=== PATIENT | male | born 1945 | race Caucasian/White ===

== ENCOUNTER 2019-07-12 07:11 | Outpatient (CLI) | payer MEDICARE, SELFPAY ==
--- NOTE | 2019-07-12 | XRR_ITS ---
PROCEDURE INFORMATION: Exam: XR Chest, 2 Views Exam date and time: 07/12/2019 7:43 AM Age: 73 years old Clinical indication: Cough; Additional info: Adventitious breath sounds, cough TECHNIQUE: Imaging protocol: XR of the chest Views: 2 views. COMPARISON: CR Chest 2 views* [id number] 03/23/2017 12:28 PM FINDINGS: Lungs: Hyperinflation. No CHF or focal consolidation. Right apical scarring. Pleural space: Right apical pleural thickening. No pleural effusion. No pneumothorax. Heart/Mediastinum: Unremarkable. No cardiomegaly. Bones/joints: No acute findings. XR/XR chest 2V* [id number] IMPRESSION: No acute findings.
--- NOTE | 2019-07-12 07:15 | US_ITS ---
WS: [id number] Complete ABDOMINAL ULTRASOUND HISTORY: RUQ PAIN COMPARISON: None available. Liver: 13.6 cm in length. Liver is normal size and echogenicity with no mass or intrahepatic dilatati on. Gallbladder: Several stones within the normally distended gallbladder. No pericholecystic fluid. Gall bladder wall is top normal size. Gallbladder wall thickness: 3.0 cm. Pancreas: Normal size and echogenicity. CBD: 4.0 cm. Right kidney: 10.4 cm x 5.4 cm x 5.3 cm. No mass, cortical thickening or hydronephrosis. Left kidney: 11.6 cm x 5.1 cm x 5.2 cm. No mass, cortical thickening or hydronephrosis. Spleen: Normal size and echogenicity. Abdominal aorta and IVC are within normal limits. No ascites. US/US abdomen complete* [id number] IMPRESSION: 1. Cholelithiasis without evidence for acute cholecystitis. Numerous stones ar e present in the gallbladder. 2. No bile duct dilatation.
== END 2019-07-12 07:12 | disposition home or self-care (01) ==
PROVIDERS: Family Provider Family Medicine; PCP Family Medicine; Visit Provider Nurse Practitioner Family
DX: K80.20 Calculus of gallbladder without cholecystitis without obstruction (principal); R10.811 Right upper quadrant abdominal tenderness; R06.89 Other abnormalities of breathing
CPT/HCPCS: 71046; 76700

== ENCOUNTER → 2020-08-19 14:04 | Outpatient (BNVA) | payer MEDICARE, SELFPAY | PROVIDERS: Family Provider Family Medicine; PCP Family Medicine; Visit Provider Podiatrist Foot & Ankle Surgery | DX: M79.672 Pain in left foot (principal) | CPT/HCPCS: 73630 ==

== ENCOUNTER 2021-04-16 10:07 | Outpatient (CLI) | payer MEDICARE, SELFPAY ==
--- NOTE | 2021-04-16 10:10 | CT_ITS ---
WS: [id number] LDCT LUNG CANCER SCREENING TECHNIQUE: Noncontrast CT of the chest with coronal and sagittal reformatted images. CLINICAL INFORMATION: HX OF TOBACCO USE COMPARISON: None. DLP: 62.11 mGy.cm DIvol: 1.[address] scans at [facility] use at least one of these dose optimization techniques: automat ed exposure control; mA and/or kV adjustment per patient size (includes targeted exams where dose is matched to clinical indication); or iterative reconstruction. FINDINGS: Moderate to advanced chronic emphysematous changes. Fibrosis and calcification in the right lung apex . Aortic calcification. Coronary calcification. Calcified right hilar nodes. 11 mm partially calcifie d fibrotic lesion left upper lobe anteriorly unchanged since 2017. This has a chronic appearance. Adrenal glands are normal. Mild thoracic curve and thoracic kyphosis. Moderate spondylitic changes thoracic spine with disc spac e narrowing in the mid thoracic spine. CT/CT lung screening [id number] IMPRESSION: LUNG-RADS: 2-Benign Appearance or Behavior FOLLOW UP: 12 Month: Continue annual screening with LDCT
== END 2021-04-16 10:08 | disposition home or self-care (01) ==
PROVIDERS: PCP Family Medicine; Visit Provider Family Medicine
DX: Z12.2 Encounter for screening for malignant neoplasm of respiratory organs (principal); Z87.891 Personal history of nicotine dependence
CPT/HCPCS: 71271

== ENCOUNTER → 2023-12-30 14:10 | Outpatient (BNVA) | payer MEDICARE, SELFPAY | PROVIDERS: PCP Family Medicine; Visit Provider Nurse Practitioner Family | DX: Z12.5 Encounter for screening for malignant neoplasm of prostate (principal); I10 Essential (primary) hypertension; E34.9 Endocrine disorder, unspecified; F17.200 Nicotine dependence, unspecified, uncomplicated; J44.9 Chronic obstructive pulmonary disease, unspecified; M54.16 Radiculopathy, lumbar region | CPT/HCPCS: 80053; 80061; 85025 ==

== ENCOUNTER 2024-01-05 14:25 | Outpatient (CLI) | payer MEDICARE, SELFPAY ==
--- NOTE | 2024-01-05 14:30 | CT_ITS ---
WS: [id number] CT chest w con* [id number] HISTORY: pulmonary nodule TECHNIQUE: Axial imaging performed through the thorax. Coronal and sagittal reformats are submitted. [facility] at [facility] one of these dose optimization techniques: automated exposure control; mA and/or kV adjustment per patient size (includes targeted exams where dose is mat ched to clinical indication); or iterative reconstruction. CONTRAST: Omnipaque 350; 100 mL IV. DLP: 299.05 mGy.cm COMPARISON: 04/16/2021, 12/07/2018 Lungs and central airway: Severe centrilobular emphysema. Reidentified is the pleural-parenchymal sca rring and nodularity in the RIGHT upper lobe which has been previously described. The nodule is becom ing calcified. There is no increasing soft tissue mass. There is an additional calcified nodule in th e LEFT upper lobe. This nodule was partially calcified on the prior study. Subcentimeter, subpleural nodule RIGHT upper lobe. Pleura: No effusions. Heart and pericardium: Normal size heart with no pericardial effusion. Mediastinum and angelika: Indeterminate mediastinal and hilar lymph nodes. Largest lymph node is the RIGH T hilum measuring 1.3 cm. LEFT hilar lymph node is smaller but also appears more prominent. Vessels: Mild atherosclerosis aorta. Normal size pulmonary artery. Chest wall and lower neck: No soft tissue masses. Upper abdomen: Bilateral adrenal gland hyperplasia. Visualized liver is negative. Osseous structures: Thoracic spondylosis. Osteopenia. CT/CT chest w con* [id number] IMPRESSION: 1. Advanced centrilobular emphysema. 2. 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 I ncreasing calcification in the nodular component of the fibrosis. No increasing soft tissue mass. 3. Additional calcified nodule LEFT upper lobe. There are no new masses or nod ules. 4. Indeterminate hilar lymph nodes. Largest lymph node is 13 mm and this may b e reactive.
[2024-01-05] MEDS: iohexol 350 mg/mL 500 mL Btl (per mL) IV (14:51)
== END 2024-01-05 14:26 | disposition home or self-care (01) ==
LOC: RAD 14:27
PROVIDERS: PCP Internal Medicine; Visit Provider Nurse Practitioner Family
DX: R91.1 Solitary pulmonary nodule (principal); J43.2 Centrilobular emphysema; M47.814 Spondylosis without myelopathy or radiculopathy, thoracic region; M85.88 Other specified disorders of bone density and structure, other site
CPT/HCPCS: 71260; 80053; 80061; 85025; Q9967